=== PATIENT | male | born 1975 | race Caucasian/White ===

== ENCOUNTER → 2017-05-23 | Outpatient (CLI) | payer OTHER | LOC: CIMAGING 13:47 | PROVIDERS: ATTEND Family Medicine | DX: M16.11 Unilateral primary osteoarthritis, right hip (principal) | CPT/HCPCS: 73502-PO ==

== ENCOUNTER → 2017-05-24 | Outpatient (CLI) | payer OTHER | LOC: CIMAGING 07:09 | PROVIDERS: ATTEND Family Medicine | DX: R10.10 Upper abdominal pain, unspecified (principal); K76.0 Fatty (change of) liver, not elsewhere classified | CPT/HCPCS: 76700-PO ==

== ENCOUNTER → 2017-09-20 | Outpatient (CLI) | payer OTHER ==
[~2017-09-20] MED LIST: IOPAMIDOL (ISOVUE-300) 100 ML BTL ONE
== END ==
LOC: CIMAGING 08:29
PROVIDERS: ATTEND Family Medicine
DX: R93.5 Abnormal findings on diagnostic imaging of other abdominal regions, including retroperitoneum (principal)
CPT/HCPCS: 74177-PO; Q9967